=== PATIENT | male | born 1985 | race Caucasian/White ===

== ENCOUNTER 2017-09-11 20:13 | Emergency (ER) | payer SELFPAY ==
[~2017-09-11] VITALS: Ht 167.6 cm; Wt 93.0 kg
[2017-09-11 20:18] VITALS: BP_SYST 122
== END 2017-09-11 21:17 | disposition left against medical advice (07) ==
LOC: SED 20:13
DX: R07.89 Other chest pain (principal); Z53.21 Procedure and treatment not carried out due to patient leaving prior to being seen by health care provider
CPT/HCPCS: 93005; 99281